=== PATIENT | female | born 1985 | race Caucasian/White ===

== ENCOUNTER 2020-05-24 19:27 | Emergency (ER) | payer OTHER, MEDICAID, SELFPAY ==
[2020-05-24 19:43] VITALS: PULSE 88; O2SAT 95
--- NOTE | 2020-05-24 19:43 | ED_ITS ---
HPI - General Adult General Chief complaint: Allergic Reaction Stated complaint: states allergic reaction to antibiotics Time Seen by Provider: 05/24/20 19:42 History of Present Illness HPI narrative: 35-year-old woman with a blister that had developed between the 4th and 5th toe on the right foot ruptured a couple of days ago and developing cellulitis over the dorsum of the foot. Was seen at urgent care and started on Keflex. She took 1st dose at 3:00 this afternoon. Within an hour she started noticing hives that have continued to worsen. She is not complaining of any dyspnea, wheezing, abdominal pain or vomiting. She does note that the dorsum of her foot is tender from the previously diagnosed cellulitis. She also notes that she was outside for approximately 3 hours this afternoon not aware of the son intensity and has fairly significant sunburn over her forehead upper chest and anterior shins and feet. Related Data Previous Rx's Medication Instructions Recorded cephalexin 500 mg capsule 500 mg PO QID 7 Days #28 cap 05/24/20 hydroxyzine HCl 25 mg tablet 25 mg PO BID PRN #10 tab 05/24/20 sulfamethoxazole-trimethoprim 1 tab PO BID #14 tab 05/24/20 Allergies Allergy/AdvReac Type Severity Reaction Status Date / Time cephalexin Allergy Verified 05/24/20 19:45 Penicillins Allergy swelling Verified 05/24/20 16:11 Review of Systems Review of Systems Narrative: Pertinent positive and negative findings as per HPI Remainder of review of systems is otherwise unremarkable for Constitutional: Fevers, chills, weakness ENT: No sore throat, neck pain, ear pain CV: Chest pain, palpitations, dyspnea on exertion GI: Nausea, vomiting, diarrhea, change in bowel habits, black or bloody stools : Dysuria, hematuria, flank pain MS: Muscle weakness, numbness, joint swelling or warmth Patient History Social History Smoking Status: Never smoker Exam Narrative Exam Narrative: General: Alert appropriate in no acute distress Respiratory: Able to speak in full sentences, no obvious respiratory distress. Lungs are completely clear of wheezing or rhonchi and she has full and symmetrical air movement bilaterally Cardiac: regular rate and rhythm, no murmurs Skin: Urticaria spreading over her abdomen and back. Sunburn over her forehead and upper chest as well as front part of her lower extremities. Neurologic: Grossly intact no obvious asymmetries or abnormalities Psych, appropriate insight and affect, cooperative Initial Vital Signs Initial Vital Signs: Vital Signs Temperature 98.3 F 05/24/20 19:45 Pulse Rate 78 05/24/20 19:45 Respiratory Rate 18 05/24/20 19:45 Blood Pressure 168/87 H 05/24/20 19:45 Pulse Oximetry 100 05/24/20 19:45 Course Orders Ordered: Discontinued Medications Prednisone (Deltasone) 60 mg PO NOW ONE Stop: 05/24/20 19:50 Vital Signs Vital signs: Vital Signs - 8 hr 05/24/20 19:45 Temperature 98.3 F Pulse Rate 78 Respiratory Rate 18 Blood Pressure 168/87 H Pulse Oximetry 100 Medical Decision Making Medical Records Medical records reviewed: Yes I reviewed the patient's medical records. MDM Narrative Medical decision making narrative: 35-year-old woman with a right lower extremity developing cellulitis appropriately treated with Keflex and developed an acute allergic reaction shortly after the 1st dose. Treated with a single dose of prednisone in the emergency department. As there was only 1 dose I do not think that she needs an extended course of antihistamines. Clearly reviewed signs and symptoms that would necessitate return to the emergency room for both the acute allergic reaction as well as the cellulitis. Will replace the Keflex with Septra to treat the cellulitis. She is safe for home discharge Discharge Plan Departure Patient Disposition: Home Clinical Impression: Allergic reaction Qualifiers: Encounter type: initial encounter Qualified Code(s): T78.40XA - Allergy, unspecified, initial encounter Cellulitis Qualifiers: Site of cellulitis: extremity Site of cellulitis of extremity: lower extremity Laterality: right Qualified Code(s): L03.115 - Cellulitis of right lower limb Instructions: DI for Adverse Drug Reaction -- Allergic Activity Restrictions/Additional Instructions: You for coming in today You clearly are having an acute allergic reaction to the Keflex. As you only took a single pill you should be significantly improved within the next few hours. I have given you a single dose of prednisone that will help over the next 24-48 hours. You do have a developing cellulitis from the ruptured blister between her 4th and 5th toes on the right foot. I am going to give you a prescription for Septra, a sulfa medication that is not related to either penicillins or cephalosporins. Please take the 1st dose tomorrow. The prescription has been electronically transmitted to [facility] in [place] for you this evening. If you feel that your allergy symptoms are getting worse, including difficulty breathing, wheezing, swelling in your throat tongue or lips please return to the emergency department. Regarding the cellulitis, if that is not improving by Wednesday (with the antibiotics) you need to be seen and re-evaluated. Prescriptions: New sulfamethoxazole-trimethoprim 800-160 mg tablet 1 tab PO BID Qty: 14 RF: 0 No Action cephalexin 500 mg capsule 500 mg PO QID 7 Days Qty: 28 RF: 0 hydroxyzine HCl 25 mg tablet 25 mg PO BID PRN (Reason: itching) Qty: 10 RF: 0
[2020-05-24 19:45] VITALS: BP 168/87; PULSE 78; RESP 18; TEMP 36.8; O2SAT 100; BMI 23.0
[2020-05-24 20:00] VITALS: BP 155/96; PULSE 81; O2SAT 96
[2020-05-24 20:32] VITALS: PULSE 87; O2SAT 97
[2020-05-24] MEDS: predniSONE 20 MG TABLET 60 MG PO (20:37)
== END 2020-05-24 20:51 | disposition home or self-care (01) ==
PROVIDERS: Emergency Provider Emergency Medicine
DX: T78.40XA Allergy, unspecified, initial encounter (principal); L03.115 Cellulitis of right lower limb
CPT/HCPCS: 81025; 99283

== ENCOUNTER 2021-03-15 23:31 | Emergency (ER) | payer OTHER, MEDICAID, SELFPAY ==
[2021-03-15 23:43] VITALS: BP 140/99; PULSE 84; RESP 20; TEMP 36.9; O2SAT 98; BMI 25.6
--- NOTE | 2021-03-16 00:07 | ED.PREGNANCY ---
HPI - General Chief complaint: Vaginal Bleeding Stated complaint: 6 wks , cramping, bleeding Time Seen by Provider: 03/16/21 00:05 Source: patient Mode of arrival: Ambulatory Limitations: no limitations History of Present Illness HPI Narrative: The patient is . She has a prior elective . Menstrual cycles are regular, she was positive on testing several times this past week. She has had nausea and vomiting. Today she had upper abdominal cramping. She had no level cramping. She has passed a small amount of vaginal blood prior to arrival. She does not have persistent bleeding. She has no dysuria or hematuria. She has no associated back pain. She denies recent illness. Patient : Yes Related Data Previous Rx's Medication Instructions Recorded hydroxyzine HCl 25 mg tablet 25 mg PO BID PRN #10 tab 05/24/20 sulfamethoxazole-trimethoprim 1 tab PO BID #14 tab 05/24/20 ondansetron 4 mg PO Q4H PRN #20 tab 03/16/21 Allergies Allergy/AdvReac Type Severity Reaction Status Date / Time azithromycin Allergy Verified 03/15/21 23:43 cephalexin Allergy Verified 03/15/21 23:43 Penicillins Allergy swelling Verified 03/15/21 23:43 Review of Systems Constitutional Constitutional: Denies fever(s) and Denies headache(s) ENT Ears, Nose, Mouth, and Throat: Denies headache(s) and Denies sore throat Cardiovascular Cardiovascular: Denies chest pain and Denies dyspnea Respiratory Respiratory: Denies cough and Denies dyspnea Gastrointestinal Gastrointestinal: Reports abdominal pain, Denies change in bowel habits, Denies diarrhea, Reports nausea and Reports vomiting Genitourinary Genitourinary: Denies dysuria Genitourinary: Denies dysuria Comments: Vaginal bleeding as noted HPI Musculoskeletal Musculoskeletal: Denies back pain Neurologic Neurologic: Denies headache(s) PMFSH - Past Medical History Medical history: Reports no medical history Surgical history: Reports no surgical history Patient : Yes Psychiatric history: Reports no psych history Family History Family history: Reports no significant family history Exam Initial Vital Signs Initial Vital Signs: Vital Signs Temperature 98.4 F 03/15/21 23:43 Pulse Rate 84 03/15/21 23:43 Respiratory Rate 20 03/15/21 23:43 Blood Pressure 140/99 H 03/15/21 23:43 Pulse Oximetry 98 03/15/21 23:43 Const General: cooperative and well developed Nutritional Appearance: well nourished [facility] Throat: posterior oropharynx normal Neck Neck: full ROM Resp Effort & Inspection: normal respiratory effort and able to speak in complete sentences Auscultation: clear to auscultation bilaterally Cardio Rate: regular rate Rhythm: regular rhythm Heart Sounds: S1 normal, S2 normal, no click, no gallops, no murmurs and no rubs Pulses: normal peripheral pulses GI Inspection: non-distended Palpation: soft, no hepatosplenomegaly, No guarding and No tender Auscultation: normal bowel sounds Back/Spine/Pelvis Back: normal to inspection and No back tenderness Skin General: no rashes or lesions noted, No jaundice and No petechiae Neuro General: patient alert, patient oriented x3, gait normal and no focal motor deficits Speech: speech normal Extrem General: full ROM, no pedal edema and no calf tenderness Course Orders Ordered: ED Orders 03/15/21 23:59 ABO RH Type Stat Complete Blood Count AUTO DIFF Stat Comprehensive Metabolic Panel Stat HCG Quantitative /Beta subunit Stat 03/16/21 02:07 US OB <= 14 weeks fetus Stat Discontinued Medications Ondansetron HCl (Ondansetron 4 Mg Odt) 4 mg SL NOW ONE Stop: 03/16/21 00:53 Last Admin: 03/16/21 00:56 Dose: 4 mg Documented by: MELIA Vital Signs Vital signs: Vital Signs - 8 hr 03/16/21 03:01 Pulse Rate 76 Respiratory Rate 18 Blood Pressure 124/88 Pulse Oximetry 97 MDM - OB/Uterine Contractions Lab Data Result diagrams: 03/15/21 23:59 03/15/21 23:59 Labs: Lab Results 03/15/21 03/15/21 03/15/21 Range/Units 23:59 23:59 23:59 WBC 11.3 H (4.5-11.0) X10^3/uL RBC 4.46 (4.0-5.2) X10^6/uL Hgb 13.6 (12.0-16.0) g/dL Hct 40.7 (36-46) % MCV 91.3 (80-100) fL MCH 30.4 (26-34) PG MCHC 33.3 (30-36) % RDW 13.7 (11.6-14.8) % Plt Count 357 (150-400) X10^3/uL Neut % (Auto) 69.5 (50-75) % Lymph % (Auto) 22.6 L (25-40) % [place] % (Auto) 6.4 (3-14) % Eos % (Auto) 0.8 L (2-4) % Baso % (Auto) 0.7 (0-2) % Neut # (Auto) 7800 H (9732-7681) /uL Lymph # (Auto) 2600 (0174-1149) /uL [place] # (Auto) 700 (0-900) /uL Eos # (Auto) 100 (0-450) /uL Baso # (Auto) 100 (0-100) /uL Sodium 135 L (137-145) mmol/L Potassium 3.5 (3.4-5.1) mmol/L Chloride 106 (98-107) mmol/L Carbon Dioxide 19 L (22-32) mmol/L BUN 10 (7-17) mg/dL Creatinine 0.51 L (0.52-1.04) mg/dL Estimated GFR > 60.0 (>60) mL/min BUN/Creatinine Ratio 19.6 (6-22) Glucose 156 H (70-100) mg/dL Calcium 9.1 (8.4-10.2) mg/dL Total Bilirubin 0.2 (0.2-1.3) mg/dL AST 29 (14-36) IU/L ALT 32 (<35) IU/L Alkaline Phosphatase 46 (38-126) U/L Total Protein 6.5 (6.3-8.2) g/dL Albumin 3.9 (3.5-5.0) g/dL Globulin 2.6 (1.7-4.1) g/dL Albumin/Globulin Ratio 1.5 (1.0-2.8) HCG, Quant 54815 mIU/mL Blood Type A Positive Urine Dip Bedside Urine Glucose Negative Bedside Urine Bilirubin - Negative Bedside Urine Ketone - Negative Urine Specific [place] 1.030 Bedside Urine Occult Blood - Negative Bedside Urine pH 6.0 Bedside Urine Protein - Negative Bedside Urine Urobilinogen - Negative Bedside Urine Nitrite - Negative Bedside Urine Leukocytes - Negative Esterase Imaging Data Ob ultrasound:: My Impression: 6+5 week IUP. Discharge Plan Departure Patient Disposition: Home Clinical Impression: 6 weeks gestation of , Antepartum bleeding, first trimester Activity Restrictions/Additional Instructions: Zofran every 4 hours as needed for nausea. Be sure you are drinking plenty of fluids. If you have significant increase in bleeding, contact your doctor or return here. Prescriptions: New ondansetron 4 mg tablet,disintegrating 4 mg PO Q4H PRN (Reason: nausea and vomiting) Qty: 20 RF: 0 No Action hydroxyzine HCl 25 mg tablet 25 mg PO BID PRN (Reason: itching) Qty: 10 RF: 0 sulfamethoxazole-trimethoprim 800-160 mg tablet 1 tab PO BID Qty: 14 RF: 0
[2021-03-16 00:18] LABS: Add Manual Diff / Slide Review NO; Basophils Absolute Auto 100 /uL (0-100); Basophils Percent Auto 0.7 % (0-2); Eosinophils Absolute Auto 100 /uL (0-450); Eosinophils Percent Auto 0.8 % (2-4); Hematocrit 40.7 % (36-46); Hemoglobin 13.6 g/dL (12.0-16.0); Lymphocytes Absolute Auto 2600 /uL (1100-4500); Lymphocytes Percent Auto 22.6 % (25-40); Mean Corpuscular HGB Conc 33.3 % (30-36); Mean Corpuscular Hemoglobin 30.4 PG (26-34); Mean Corpuscular Volume 91.3 fL (80-100); Monocytes Absolute Auto 700 /uL (0-900); Monocytes Percent Auto 6.4 % (3-14); Neutrophils Absolute Auto 7800 /uL (1500-7000); Neutrophils Percent Auto 69.5 % (50-75); Platelet Count 357 X10^3/uL (150-400); Red Blood Cell Count 4.46 X10^6/uL (4.0-5.2); Red Cell Distribution Width 13.7 % (11.6-14.8); White Blood Cell Count 11.3 X10^3/uL (4.5-11.0)
[2021-03-16 00:32] LABS: Alanine Aminotransferase 32 IU/L (<35); Albumin 3.9 g/dL (3.5-5.0); Albumin Globulin Ratio 1.5 (1.0-2.8); Alkaline Phosphatase 46 U/L (38-126); Aspartate Aminotransferase 29 IU/L (14-36); BUN Creatinine Ratio 19.6 (6-22); Bilirubin Total 0.2 mg/dL (0.2-1.3); Blood Urea Nitrogen 10 mg/dL (7-17); Calcium 9.1 mg/dL (8.4-10.2); Carbon Dioxide 19 mmol/L (22-32); Chloride 106 mmol/L (98-107); Estimated Glomerular Filt Rate > 60.0 mL/min (>60); Globulin 2.6 g/dL (1.7-4.1); Glucose 156 mg/dL (70-100); HEMOLYSIS < 15 (0-50); Potassium 3.5 mmol/L (3.4-5.1); Sodium 135 mmol/L (137-145); Total Protein 6.5 g/dL (6.3-8.2)
--- NOTE | 2021-03-16 00:47 | PC.NURSE ---
Gillespie to paper after wiping
[2021-03-16 00:49] LABS: HCG Quantitative /Beta subunit 18243 mIU/mL
[2021-03-16] MEDS: ONDANSETRON 4 MG ODT SL (00:56)
--- NOTE | 2021-03-16 02:07 | DI.US.S_ITS ---
PROCEDURE: US OB <= 14 WEEKS FETUS INDICATIONS: BLEEDING OUTSIDE/PRIOR DATING DATA: Last menstrual period (LMP): Unknown. LMP-based estimated date of delivery (DEONNA): Unknown. First dating scan (date and location): 03/16/2021. Estimated date of delivery (DEONNA) from first dating scan: 11/04/2021. TECHNIQUE: Real-time scanning was performed of the fetus and maternal pelvic organs, with image documentation. Endovaginal scanning was also performed to better visualize the fetus and maternal ovaries. COMPARISON: None. FINDINGS: Embryo: A single live intrauterine is seen. The measured heart rate is 119 beats per minute. The crown-rump length measures 0.8 cm, corresponding to an estimated gestational age of 6 weeks 5 days. It is too early for detailed anatomic assessment. By visual inspection, the amount of amniotic fluid is within normal limits. Minimal fluid can be seen adjacent to the gestational sac. Measurement variability in dating: +/- 4 weeks by LMP, +/- 7 days by mean sac diameter (use before 6 weeks gestation if crown-rump length not able to be measured), +/- 5 days by crown-rump length (up to 8 weeks 6 days gestation), +/- 7 days by crown-rump length (up to 13 weeks 6 days gestation). Maternal organs: Ovaries are not seen. IMPRESSION: A single live intrauterine is seen, with an estimated gestational age of 6 weeks 5 days, which corresponds to an ultrasound estimated date of delivery of 11/04/2021. Potential, minimal subchorionic hemorrhage. Close clinical followup, with serial beta-hCG and serial ultrasound are recommended, if clinically appropriate. Note: No significant discrepancy from the preliminary report. Dictated by: Jaret Ngo M.D. on 03/16/2021 at 8:17 Approved by: Jaret Ngo M.D. on 03/16/2021 at 8:20
[2021-03-16 03:01] VITALS: BP 124/88; PULSE 76; RESP 18; O2SAT 97
== END 2021-03-16 03:02 | disposition home or self-care (01) ==
PROVIDERS: Emergency Provider Emergency Medicine
DX: O20.9 Hemorrhage in early pregnancy, unspecified (principal); R10.9 Unspecified abdominal pain; R11.2 Nausea with vomiting, unspecified; Z3A.01 Less than 8 weeks gestation of pregnancy
CPT/HCPCS: 36415; 76801; 76817; 80053; 81003; 84702; 85025; 86900; 86901; 99283; 99284

== ENCOUNTER → 2021-08-11 07:14 | Outpatient (CLI) | payer OTHER, MEDICAID, SELFPAY ==
[2021-08-11 07:56] LABS: COVID19 -Nasal RAPID Negative (Negative)
== END ==
PROVIDERS: Visit Provider Nurse Practitioner Family
DX: Z20.822 Contact with and (suspected) exposure to COVID-19 (principal); R05.9 Cough, unspecified
CPT/HCPCS: 87635

== ENCOUNTER 2021-08-24 04:43 | Emergency (ER) | payer OTHER, MEDICAID, SELFPAY ==
[2021-08-24 04:54] VITALS: BP 176/96; PULSE 94; RESP 21; TEMP 36.3; O2SAT 97; BMI 30.9
--- NOTE | 2021-08-24 04:56 | ED_ITS ---
HPI - General Adult General Chief complaint: Diabetic Problem Stated complaint: 30wks, gestational diabetes Time Seen by Provider: 08/24/21 04:45 History of Present Illness HPI narrative: 36-year-old female nonsmoker is a at 30 weeks with recently diagnosed gestational diabetes. She presents at the request of her OB provider for evaluation of low blood sugars. She is fatigued injury, lightheaded and weak. She denies any vaginal bleeding, discharge or leakage of fluids. She has no pain but woke up feeling poorly and has had blood sugars between the 40s and 60s even after drinking 2 glasses of Warm she is. Furthermore, she is concerned because she has not felt her baby move since this all happened. She has had 2 days of metformin 500 mg extended release. Related Data Allergies Allergy/AdvReac Type Severity Reaction Status Date / Time azithromycin Allergy Verified 08/11/21 08:26 cephalexin Allergy Verified 08/11/21 08:26 Penicillins Allergy swelling Verified 08/11/21 08:26 Review of Systems Review of Systems Narrative: GENERAL: see HPI HEENT: Denies sinus pain, ear pain, sore throat, difficulty swallowing, dizziness. RESPIRATORY: Denies dyspnea, cough, wheezing, hemoptysis, sputum. CARDIOVASCULAR: Denies chest pain, palpitations, orthopnea, edema, GASTROINTESTINAL: Denies nausea, vomiting, abdominal pain, diarrhea, constipation, melena. : Denies dysuria, frequency, incontinence, hematuria, urinary retention. MUSCULOSKELETAL: denies weakness, joint pain, or bony pain SKIN: Denies rash, skin lesions, or other NEUROLOGIC: Denies weakness, headache, numbness, change in speech, confusion, seizures, incoordination. PSYCHIATRIC: No concerning psychosocial issues. 12 point review of systems is negative except for those stated above Patient History Social History Smoking Status: Never smoker Smoking Status: Never smoker alcohol intake frequency: holidays/special occasions only Substance Use Type: does not use Exam Narrative Exam Narrative: GENERAL: [36] year old patient appears stated age. Well- developed patient, in mild distress. Obviously (and understandably so) quite anxious HEAD: Atraumatic. Normocephalic. EYES: Pupils equal round and reactive. Extraocular motions intact. No scleral icterus. No injection or drainage. ENT: Nose without bleeding, purulent drainage. Throat without erythema, tonsillar hypertrophy or exudate. Airway patent. NECK: Trachea midline. Non tender CARDIOVASCULAR: Regular rate and rhythm without murmurs, gallops, or rubs. RESPIRATORY: Clear to auscultation. Breath sounds equal bilaterally. No wheezes, rales, or rhonchi. GASTROINTESTINAL: Abdomen soft, gravid above umbilicus EXTREMITIES: No edema or joint tenderness. BACK: Nontender without deformity or crepitance. No flank tenderness. NEURO: AOx3. SKIN: No rash or erythema of visible areas Initial Vital Signs Initial Vital Signs: Vital Signs Temperature 97.4 F L 08/24/21 04:54 Pulse Rate 94 H 08/24/21 04:54 Respiratory Rate 21 08/24/21 04:54 Blood Pressure 176/96 H 08/24/21 04:54 Pulse Oximetry 97 08/24/21 04:54 Course Orders Ordered: Discontinued Medications Sodium Chloride (Normal Saline 0.9%) 1,000 mls @ 125 mls/hr IV CONT FÉLIX Last Infusion: 08/24/21 07:39 Dose: 0 mls/hr Documented by: Admin: 08/24/21 05:04 Dose: 125 mls/hr Documented by: PHILLIP Reevaluation(s) Reevaluation #1: bedside US demonstrates appropriate motion, and FHTs in the 150s. Reevaluation #2: continues to feel much better. BG at home in 40s, then 50s, came here in 60s. Initially in 70s here, our serum noted 91 and current monitor of hers notes mid 80s. Consultations Consultation #1: Discussed with on-call OB for the patient's group, we sure the opinion that she should not take anymore of her metformin, continue to monitor her blood glucose and touch base with the clinic later in the day. Vital Signs Vital signs: Vital Signs - 8 hr 08/24/21 04:54 08/24/21 05:10 08/24/21 05:20 Temperature 97.4 F L Pulse Rate 94 H 87 Respiratory Rate 21 17 Blood Pressure 176/96 H 132/63 117/64 Pulse Oximetry 97 97 Medical Decision Making Lab Data Result diagrams: 08/24/21 04:55 08/24/21 04:55 Labs: Lab Results 10/17/21 10/17/21 Range/Units 04:55 04:55 WBC 10.1 (4.5-11.0) X10^3/uL RBC 4.07 (4.0-5.2) X10^6/uL Hgb 12.6 (12.0-16.0) g/dL Hct 37.5 (36-46) % MCV 92.2 (80-100) fL MCH 31.0 (26-34) PG MCHC 33.6 (30-36) % RDW 14.3 (11.6-14.8) % Plt Count 353 (150-400) X10^3/uL Neut % (Auto) 71.0 (50-75) % Lymph % (Auto) 18.7 L (25-40) % [place] % (Auto) 9.1 (3-14) % Eos % (Auto) 0.8 L (2-4) % Baso % (Auto) 0.4 (0-2) % Neut # (Auto) 7100 H (3287-4650) /uL Lymph # (Auto) 1900 (8889-5402) /uL [place] # (Auto) 900 (0-900) /uL Eos # (Auto) 100 (0-450) /uL Baso # (Auto) 0 (0-100) /uL Sodium 135 L (137-145) mmol/L Potassium 3.6 (3.4-5.1) mmol/L Chloride 106 (98-107) mmol/L Carbon Dioxide 19 L (22-32) mmol/L BUN 8 (7-17) mg/dL Creatinine 0.31 L (0.52-1.04) mg/dL Estimated GFR > 60.0 (>60) mL/min BUN/Creatinine Ratio 25.8 H (6-22) Glucose 91 (70-100) mg/dL Uric Acid 4.1 (2.5-6.2) mg/dL Calcium 9.1 (8.4-10.2) mg/dL Total Bilirubin 0.3 (0.2-1.3) mg/dL AST 22 (14-36) IU/L ALT 15 (<35) IU/L Alkaline Phosphatase 66 (38-126) U/L Lactate Dehydrogenase 340 (313-618) U/L Total Protein 6.4 (6.3-8.2) g/dL Albumin 3.8 (3.5-5.0) g/dL Globulin 2.6 (1.7-4.1) g/dL Albumin/Globulin Ratio 1.5 (1.0-2.8) Point of Care Testing Glucose POC 77 Urine Dip Bedside Urine Glucose Negative Bedside Urine Bilirubin - Negative Bedside Urine Ketone +++ 80 Urine Specific [place] 1.030 Bedside Urine Occult Blood - Negative Bedside Urine pH 6.0 Bedside Urine Protein - Negative Bedside Urine Urobilinogen - Negative Bedside Urine Nitrite - Negative Bedside Urine Leukocytes - Negative Esterase Point of care testing: Point of Care Testing Glucose POC 77 Urine Dip Bedside Urine Glucose Negative Bedside Urine Bilirubin - Negative Bedside Urine Ketone +++ 80 Urine Specific [place] 1.030 Bedside Urine Occult Blood - Negative Bedside Urine pH 6.0 Bedside Urine Protein - Negative Bedside Urine Urobilinogen - Negative Bedside Urine Nitrite - Negative Bedside Urine Leukocytes - Negative Esterase MDM Narrative Medical decision making narrative: Patient develops a drop in blood sugar after initiation of a new anti hyperglycemic. She responds well to orals, is observed for multiple hours and demonstrates a consistent rise in her blood sugar. I have consulted with Ob with her group and they recommend stopping metformin and following closely. Return precautions given and questions answered to patient's apparent satisfaction Discharge Plan Departure Patient Disposition: Home Clinical Impression: Diabetes mellitus affecting Qualifiers: Trimester: third trimester Qualified Code(s): O24.913 - Unspecified diabetes mellitus in , third trimester Instructions: DI for Hypoglycemia Activity Restrictions/Additional Instructions: *You have been diagnosed with [hypoglycemia from medications ] *What to do: *PLEASE STOP TAKING YOUR METFORMIN. Otherwise please continue to take your regular medications as directed. [ ] New medication prescriptions sent to your pharmacy: [ ] [ ] New medication written as a paper prescription [x ] No new medications given *Please follow up with your primary OB provider in 2-3 days, call for an appointment. Let them know you were seen in the Emergency Department and that we ask that you be seen in follow up. We will electronically transmit a record of today's note if your PCP is in our system *If you do not have a primary care provider please contact the [facility] Resource line at [phone]. They will ask some questions about your medical history and help get you set up with a doctor in the community. *Return to Emergency Department if you should have any new, worsening or concerning symptoms, such as [ongoing low blood sugar or other bothersome symptoms Referrals: Miscellaneous,Doctor, MD [Primary Care Provider] -
[2021-08-24] MEDS: SODIUM CHLORIDE 0.9% 1,000 ML 125 ML IV (05:04)
[2021-08-24 05:05] LABS: Add Manual Diff / Slide Review NO; Basophils Absolute Auto 0 /uL (0-100); Basophils Percent Auto 0.4 % (0-2); Eosinophils Absolute Auto 100 /uL (0-450); Eosinophils Percent Auto 0.8 % (2-4); Hematocrit 37.5 % (36-46); Hemoglobin 12.6 g/dL (12.0-16.0); Lymphocytes Absolute Auto 1900 /uL (1100-4500); Lymphocytes Percent Auto 18.7 % (25-40); Mean Corpuscular HGB Conc 33.6 % (30-36); Mean Corpuscular Volume 92.2 fL (80-100); Monocytes Absolute Auto 900 /uL (0-900); Monocytes Percent Auto 9.1 % (3-14); Neutrophils Absolute Auto 7100 /uL (1500-7000); Platelet Count 353 X10^3/uL (150-400); Red Blood Cell Count 4.07 X10^6/uL (4.0-5.2); Red Cell Distribution Width 14.3 % (11.6-14.8); White Blood Cell Count 10.1 X10^3/uL (4.5-11.0)
[2021-08-24 05:10] VITALS: BP 132/63
[2021-08-24 05:18] LABS: Alanine Aminotransferase 15 IU/L (<35); Albumin 3.8 g/dL (3.5-5.0); Albumin Globulin Ratio 1.5 (1.0-2.8); Alkaline Phosphatase 66 U/L (38-126); Aspartate Aminotransferase 22 IU/L (14-36); BUN Creatinine Ratio 25.8 (6-22); Bilirubin Total 0.3 mg/dL (0.2-1.3); Blood Urea Nitrogen 8 mg/dL (7-17); Calcium 9.1 mg/dL (8.4-10.2); Carbon Dioxide 19 mmol/L (22-32); Chloride 106 mmol/L (98-107); Estimated Glomerular Filt Rate > 60.0 mL/min (>60); Globulin 2.6 g/dL (1.7-4.1); Glucose 91 mg/dL (70-100); HEMOLYSIS < 15 (0-50); Lactate Dehydrogenase 340 U/L (313-618); Potassium 3.6 mmol/L (3.4-5.1); Sodium 135 mmol/L (137-145); Total Protein 6.4 g/dL (6.3-8.2); Uric Acid 4.1 mg/dL (2.5-6.2)
[2021-08-24 05:20] VITALS: BP 117/64; PULSE 87; RESP 17; O2SAT 97
[2021-08-24 07:23] VITALS: BP 124/80; PULSE 105; RESP 18; O2SAT 97
--- NOTE | 2021-08-24 07:25 | PC.NURSE ---
Rounded on this pt to introduce assess and initiate care after shift change. She presents awake and alert, reporting she feels much more comfortable now than she did upon arrival. VSS, resps e/u. Pt is able to ambulate with independent, steady gait. She understands the plan of care and that OB consultation is pending. Mother at bedside, call light within reach.
== END 2021-08-24 07:54 | disposition home or self-care (01) ==
PROVIDERS: Emergency Provider Emergency Medicine
DX: O26.893 Other specified pregnancy related conditions, third trimester (principal); E13.649 Other specified diabetes mellitus with hypoglycemia without coma; T38.3X5A Adverse effect of insulin and oral hypoglycemic [antidiabetic] drugs, initial encounter; Z3A.30 30 weeks gestation of pregnancy; Z79.84 Long term (current) use of oral hypoglycemic drugs
CPT/HCPCS: 36415; 80053; 81003; 82962; 83615; 84550; 85025; 96360; 96361; 99284

== ENCOUNTER 2025-10-29 22:27 | Emergency (ER) | payer OTHER, SELFPAY ==
--- OUTSIDE RECORDS SUMMARY | 2025-10-29 22:29 | XMS_ITS | Encounter Summary ---
Author Organization [facility] Address [address] [place] [address] Care Team Providers Care Pot Holder Binder Name Role Phone Pcp, None Selected Primary Care Provider Unavail able Encounter Details Date Type Department Care Team (Late st Contact Info) Description 06/04/2023 [facility] [place] [address] [facility] [address] [place] [address] Gloria Veloz, [address] [address] Social History Tobacco Use Types Packs/Day Years Used Date Smoking Tobacco: Never Smokeless Tobacco: Never Alcohol Use Standard Drinks/Week Comments Not Currently 0 (1 standard drink = 0.6 oz pur e alcohol) wine once a week Humiliation, Afraid, Rape, and Kick questionnair e Answer Date Recorded Within the last year, have y ou been afraid of your partner or ex-partner? No 04/08/2021 Within the last year, have y ou been humiliated or emotionally abused in other ways by your partner or ex-partner? No Within the last year, have y ou been kicked, hit, slapped, or otherwise physically hurt by your partner or ex-partner? No 04/08/2021 Within the last year, have y ou been raped or forced to have any kind of sexual activity by your partner or ex-partner? No 04/08/2021 Overall Financial Resource Strain (CARDIA) Answe r Date Recorded How hard is it for you to pa y for the very basics like food, housing, medical care, and heating? Not hard at all 04/08/2021 PHQ-2 Answer Date Recorded PHQ-2 Score 0 04/08/2021 Hunger Vital Sign Answer Date Recorded Within the past 12 months, y ou worried that your food would run out before you got the money to buy more. Never true 04/08/20 21 Within the past 12 months, t he food you bought just didn't last and you didn't have money to get more. Never true 04/08/2021 PRAPARE - Transportation Answer Date Re corded In the past 12 months, has l ack of transportation kept you from medical appointments or from getting medications? No 11/2020 In the past 12 months, has l ack of transportation kept you from meetings, work, or from getting things needed for daily living? No 04/08/2021 Housing Stability Vital Sign Answer Kevan e Recorded In the last 12 months, was t here a time when you were not able to pay the mortgage or rent on time? No 04/08/2021 Number of Places Lived in the Last Year Not on f ile 04/08/2021 In the last 12 months, was t here a time when you did not have a steady place to sleep or slept in a assisted (including now)? No 04/08/2021 Comments Unknown Sex and Gender Information Value Date Recorded Sex Assigned at Female 11/30/2021 9:04 PM PST Legal Sex Female 5:27 PM PDT Gender Identity Female 11/30/2021 9:04 PM PST Sexual Orientation Not on file documented as of this encounter Plan of Treatment Not on file documented as of this encounter Visit Diagnoses Not on filedocumented in this encounter Care Teams Pot Holder Binder Relationship Specialty Start Date End Date Pcp, None Selected PCP - General Internal Medicine 04/16/22 documented as of this encounter
[2025-10-29 22:38] VITALS: BP 134/81; PULSE 85; RESP 16; TEMP 36.4; O2SAT 98; BMI 29.2
[2025-10-29] MEDS: ONDANSETRON 4 MG ODT SL (22:47)
--- NOTE | 2025-10-29 23:26 | ED_ITS ---
HPI - URI/Sore Throat General Chief Complaint: Upper Respiratory Symptoms Stated Complaint: Covid/Flu A + Time Seen by Provider: 10/29/25 22:30 Source: patient Mode of arrival: Ambulatory History of Present Illness HPI Narrative: 40-year-old female comes with multiple systemic symptoms including fever chills body aches headaches runny nose congestion in his found to be positive for both flu and COVID at home. Related Data Previous Rx's ?Medication ?Instructions ?Recorded vits no.126-ferrous fum 1 tab PO DAILY #90 ta bs 06/14/25 28 mg iron-folic acid 800 mcg tablet (Classic ) progesterone micronized 100 mg 400 mg (4 x 100 mg) PO BEDTIME 14 07/19/25 capsule days #56 caps acetaminophen 325 mg tablet (Pain 650 mg (2 x 325 mg) PO Q6H PRN 10/29/25 Relief (acetaminophen)) fever or pain #60 tabs ondansetron 4 mg disintegrating 4 mg PO Q6H PRN nausea and 10/29/25 tablet vomiting #14 tabs oseltamivir 75 mg capsule (Tamiflu) 75 mg PO BID 5 day s #10 caps 10/29/25 Allergies Allergy/AdvReac Type Severity Reaction Status Date / Time azithromycin Allergy Intermediate Hives Verified 10/29/25 22:38 cephalexin Allergy Intermediate Hives Verified 10/29/25 22:38 Penicillins Allergy Intermediate Hives Verified 10/29/25 22:38 Review of Systems Review of Systems ROS Unobtainable: All systems reviewed & are unremarkable except as noted in HPI and below Patient History Medical History (Updated 10/29/25 @ 23:29 by Marck Ruiz MD) Infertility Gestational diabetes (~2019) Surgical History (Updated 03/06/23 @ 21:13 by Letty James) History of section (~10/29/21) Social History Smoking Status: Never smoker alcohol intake: former (Quit 2019 ) substance use type: does not use Smoking Status: Never smoker alcohol intake frequency: holidays/special occasions only Exam Narrative Exam Narrative: General: Patient appears to be in no acute distress, acting appropriately Head: normocephalic, atraumatic, HEENT: Pupils equal round reactive, eyes tracking well, neck supple, no JVD Heart: regular rate and rhythm, no murmurs, rubs, or gallops heard Lungs: clear to auscultation, no adventitious sounds Abdomen: soft , nontender, nondistended, positive bowel sounds Neurological: no focal neurological signs, moving all extremities well, alert and oriented x3, Psych: good judgment ,good insight, mood is normal. Initial Vital Signs Initial Vital Signs: Vital Signs Temperature 97.6 F 10/29/25 22:38 Pulse Rate 85 10/29/25 22:38 Respiratory Rate 16 10/29/25 22:38 Blood Pressure 134/81 10/29/25 22:38 Pulse Oximetry 98 10/29/25 22:38 Oxygen Delivery Method Room Air 10/29/25 22:38 Course Orders Ordered: Discontinued Medications Ondansetron HCl (Ondansetron 4 Mg Odt) 4 mg SL NOW ONE Stop: 10/29/25 22:46 Last Admin: 10/29/25 22:47 Dose: 4 mg Documented By: CLARA Ondansetron HCl (Ondansetron 4 Mg Odt Prepack) 1 bottle MISC DIRECTED ONE Stop: 10/29/25 23:33 Last Admin: 10/29/25 23:42 Dose: 1 bottle Documented By: CLARA Oseltamivir Phosphate (Oseltamivir 75 Mg Capsule) 75 mg PO NOW ONE Stop: 10/29/25 23:28 Last Admin: 10/29/25 23:42 Dose: 75 mg Documented By: CLARA Vital Signs Vital signs: Vital Signs - 8 hr 10/29/25 22:38 Temperature 97.6 F Pulse Rate 85 Respiratory Rate 16 Blood Pressure 134/81 Pulse Oximetry 98 Oxygen Delivery Method Room Air MDM - URI/Sore Throat MDM Narrative Medical decision making narrative: 40-year-old female dealing with symptoms of COVID and flu. Given a dose of Tamiflu here in the ED along with some Zofran. The patient also prescribed some more as well. Advised to push fluids and use Motrin and Tylenol as needed for the pain from headaches and body aches. Follow up sooner if symptoms worsen. Discharge Plan Departure Patient Disposition: Home Clinical Impression: Influenza, COVID Instructions: DI for Influenza -- Adult, DI for COVID-19 (Suspected or Confirmed ) Activity Restrictions/Additional Instructions: Push fluids, take meds as prescribed. Alternate between Motrin and Tylenol as needed for pain. Prescriptions: New oseltamivir [Tamiflu] 75 mg capsule 75 mg PO BID 5 Days Qty: 10 0RF ondansetron 4 mg tablet,disintegrating 4 mg PO Q6H PRN (Reason: nausea and vomiting) Qty: 14 0RF acetaminophen [Pain Relief (acetaminophen)] 325 mg tablet 650 mg PO Q6H PRN (Reason: fever or pain) Qty: 60 0RF No Action progesterone micronized 100 mg capsule 400 mg PO BEDTIME 14 Days Qty: 56 1RF Rx Instructions: Oral as tolerated, but use remainder vaginally Classic 28 mg iron- 800 mcg tablet 1 tab PO DAILY Qty: 90 3RF Referrals: Kay Adams DO [Primary Care Provider, Medical] Stand Alone Forms: Patient Portal/API
[2025-10-29] MEDS: OSELTAMIVIR 75 MG CAPSULE PO (23:42)
[2025-10-29] MEDS: ONDANSETRON 4 MG ODT PREPACK 1 BOTTLE MISC (23:42)
== END 2025-10-29 23:51 | disposition home or self-care (01) ==
PROVIDERS: Emergency Provider Family Medicine; PCP Family Medicine
DX: U07.1 COVID-19 (principal); M79.10 Myalgia, unspecified site; R51.9 Headache, unspecified; R09.89 Other specified symptoms and signs involving the circulatory and respiratory systems
CPT/HCPCS: 99283